=== PATIENT | female | born 1970 | race Caucasian/White ===

== ENCOUNTER 2019-11-21 07:36 | Emergency (ER) | payer BC ==
[~2019-11-21] VITALS: Ht 160 cm; Wt 61.3 kg
[2019-11-21 07:42] VITALS: BP 127/80; Ht 160 cm; Wt 61.3 kg
== END 2019-11-21 09:55 | disposition home or self-care (01) ==
LOC: ED 07:36
DX: J06.9 Acute upper respiratory infection, unspecified (principal)
CPT/HCPCS: 87804; Q0092